=== PATIENT | female | born 1975 | race Asian ===

== ENCOUNTER → 2018-02-28 | Outpatient (CLI) | payer OTHER ==
--- NOTE | 2018-02-28 15:38 | RAD ---
EXAM: Maxillofacial bone CT without contrast. HISTORY: Jaw pain. TECHNIQUE: Computed tomographic images of the maxillofacial bones were obtained without contrast. *One or more of the following individualized dose reduction techniques were utilized for this examination: 1. Automated exposure control. 2. Adjustment of the mA and/or kV according to patient size. 3. Use of iterative reconstruction technique. COMPARISON: None. FINDINGS: There is no fracture. There is no lytic or sclerotic osseous lesion. There are multiple missing teeth. The temporomandibular joints are intact. There is slight left temporomandibular joint space narrowing. There is minimal fluid within the medial left mastoid air cells. There is minimal bilateral ethmoid sinus mucosal thickening. There is mucosal thickening or a mucous retention cyst within the superior medial left maxillary sinus with associated obstruction of the left ostiomeatal unit. There is mild superior right maxillary sinus because of thickening with attenuation of the right ostiomeatal unit. There are left greater than right stefany bullosa. There is minimal nasal septal deviation. The orbits and visualized portions of the brain and calvarium are unremarkable. The visualized cervical spine is unremarkable. IMPRESSION: 1. Mild ethmoid and maxillary sinus mucosal thickening and possible tiny mucous retention cyst along the superior medial left maxillary sinus resulting in obstruction of the left ostiomeatal unit. There is also slight attenuation of the right ostiomeatal unit. 2. Left greater than right stefany bullosa. 3. Slight left temporomandibular joint space narrowing. Electronically signed by: Jennifer Robertson MD (02/28/2018 3:34 PM) [id number]
== END | disposition home or self-care (01) ==
LOC: CT 13:14
PROVIDERS: ATTEND Physician Assistant Medical
DX: R68.84 Jaw pain (principal); J34.2 Deviated nasal septum
CPT/HCPCS: 70486